=== PATIENT | female | born 1995 | race Caucasian/White ===

== ENCOUNTER 2017-01-30 13:34 | Emergency (ER) | payer MEDICAID, OTHER ==
[2017-01-30 14:01] VITALS: RESP 18; O2SAT 98; BMI 24.3
--- NOTE | 2017-01-30 15:05 | ED PDOC ---
Arrival/HPI - General Chief Complaint: Abdominal Pain Time Seen by Provider: 01/30/17 14:53 Historian: Patient - History of Present Illness Narrative History of Present Illness (Text): 01/30/17 15:00 Laly Feng is a 21 year old female, who presents to the emergency department complaining of intermittent lower abdominal cramp and pelvic pain for past 6 days. Does not have pain now. Reports that her last menstrual period was January 14 which was normal. Denies fever, chills, nausea, vomiting, diarrhea, vaginal discharge, vaginal bleeding, urinary symptoms, or any other complaints at this time. Time/Duration: < week (6 days ) Symptom Onset: Gradual Symptom Course: Intermittent Severity Level: Mild Activities at Onset: Light Context: Home Past Medical History - Provider Review Nursing Documentation Reviewed: Yes - Infectious Disease Hx of Infectious Diseases: None - Tetanus Immunization Tetanus Immunization: Unknown - Past Medical History Past Medical History: No Previous - Psychiatric Hx Psychophysiologic Disorder: No Hx Anxiety: No Hx Bipolar Disorder: No Hx Depression: No Hx Emotional Abuse: No Hx Hallucinations: No Hx Panic Disorder: No Hx Post Traumatic Stress Disorder: No Hx Psychosis: No Hx Physical Abuse: No Hx Schizophrenia: No Hx Sexual Abuse: No Hx Substance Use: No - Past Surgical History Past Surgical History: No Previous - Anesthesia Hx Anesthesia: No Hx Anesthesia Reactions: No Hx Malignant Hyperthermia: No - Suicidal Assessment Feels Threatened In Home Enviroment: No Family/Social History - Physician Review Nursing Documentation Reviewed: Yes Family/Social History: No Known Family HX Smoking Status: Never Smoked Hx Alcohol Use: No Hx Substance Use: No Hx Substance Use Treatment: No Allergies/Home Meds Allergies/Adverse Reactions: Allergies No Known Allergies Allergy (Verified 01/30/17 14:00) Review of Systems - Physician Review All systems were reviewed & negative as marked: Yes - Review of Systems Constitutional: Normal. absent: Fatigue, Fevers Respiratory: Normal. absent: SOB, Cough Cardiovascular: Normal. absent: Chest Pain Gastrointestinal: Abdominal Pain (lower abdominal pain ). absent: Diarrhea, Nausea, Vomiting Genitourinary Female: Normal. absent: Dysuria, Frequency, Vaginal Bleeding, Vaginal Discharge Musculoskeletal: Normal Neurological: Normal. absent: Headache, Dizziness Psychiatric: Normal Physical Exam Vital Signs Reviewed: Yes Vital Signs Temp Pulse Resp BP Pulse Ox 01/30/17 16:31 98.3 F 76 18 133/75 98 01/30/17 15:39 79 18 135/79 98 01/30/17 13:56 98.7 F 87 18 138/82 98 Temperature: Afebrile Blood Pressure: Normal Pulse: Regular Respiratory Rate: Normal Appearance: Positive for: Well-Appearing, Non-Toxic, Comfortable Pain Distress: None Mental Status: Positive for: Alert and Oriented X 3 - Systems Exam Head: Present: Atraumatic, Normocephalic Pupils: Present: PERRL Conjunctiva: Present: Normal Mouth: Present: Moist Mucous Membranes Respiratory/Chest: Present: Clear to Auscultation, Good Air Exchange. No: Respiratory Distress, Accessory Muscle Use Cardiovascular: Present: Regular Rate and Rhythm, Normal S1, S2. No: Murmurs Abdomen: No: Tenderness, Distention, Normal Bowel Sounds, Peritoneal Signs, Rebound, Guarding Upper Extremity: Present: Normal Inspection. No: Cyanosis, Edema Lower Extremity: Present: Normal Inspection. No: Edema Neurological: Present: GCS=15, CN II-XII Intact, Speech Normal Skin: Present: Warm, Dry, Normal Color. No: Rashes Psychiatric: Present: Alert, Oriented x 3, Normal Insight, Normal Concentration Medical Decision Making ED Course and Treatment: 01/30/17 15:07 Impression: A 21 year old female who presents to the emergency department complaining of intermittent abdominal pain Differential Diagnosis include but are not limited to: Abdominal pain: r/o UTI vs enteritis Plan: -- Labs -- Chalmydia GC -- Urine Culture -- HCG -- Urinalysis -- Reassess and disposition Progress Notes: 01/30/17 16:37 She states that she is a virgin and has not had an penetrating during sex. She was concern that she could have been but [facility] and that was explained to her. I also had this conversation in private and she still states she has not engaged in coitus. Patient still does not have any pain. Her abdomen is soft and not tender. Her labs and UA were reviewed and negative. I explained to her that cultures were sent and if positive we will call her. JAKE Cook explaining with me at bedside. 01/30/17 16:40 - Lab Interpretations Lab Results: 01/30/17 15:45 01/30/17 15:45 Lab Results 01/30/17 15:45: WBC 5.9, RBC 4.57, Hgb 12.7, Hct 37.3, MCV 81.6, MCH 27.8, MCHC 34.0, RDW 12.7, Plt Count 225, MPV 10.5, Gran % 43.2 L, Lymph % (Auto) 46.2 H, [place] % (Auto) 6.2 H, Eos % (Auto) 4.1, Baso % (Auto) 0.3, Gran # 2.53, Lymph # 2.7, [place] # 0.4, Eos # 0.2, Baso # 0.02, Sodium 138, Potassium 4.3, Chloride 101 , Carbon Dioxide 27, Anion Gap 14, BUN 16, Creatinine 0.7, Est GFR ( Amer ) > 60, Est GFR (Non-Af Amer) > 60, Random Glucose 88, Calcium 9.2, Total Bilirubin 0.7, AST 19, ALT 29, Alkaline Phosphatase 70, Total Protein 7.8, Albumin 4.2, Globulin 3.6, Albumin/Globulin Ratio 1.2 01/30/17 15:20: Urine Color Yellow, Urine Appearance Turbid, Urine pH 8.5, Ur Specific [place] 1.015, Urine Protein Negative, Urine Glucose (UA) Negative, Urine Ketones Negative, Urine Blood Negative, Urine Nitrate Negative, Urine Bilirubin Negative, Urine Urobilinogen 0.2, Ur Leukocyte Esterase Negative, Urine HCG, Qual Negative - Scribe Statement The provider has reviewed the documentation as recorded by the Mandi Khan Provider Attestation: All medical record entries made by the Mandi were at my direction and personally dictated by me. I have reviewed the chart and agree that the record accurately reflects my personal performance of the history, physical exam, medical decision making, and the department course for this patient. I have also personally directed, reviewed, and agree with the discharge instructions and disposition. Disposition/Present on Arrival - Present on Arrival Any Indicators Present on Arrival: No History of DVT/PE: No History of Uncontrolled Diabetes: No Urinary Catheter: No History of Decub. Ulcer: No History Surgical Site Infection Following: None - Disposition Have Diagnosis and Disposition been Completed?: Yes Diagnosis: Abdominal pain Disposition: HOME/ ROUTINE Disposition Time: 16:40 Patient Plan: Discharge Patient Problems: Current Active Problems Problem Status Diagnosed Abdominal pain Acute Condition: IMPROVED Discharge Instructions (ExitCare): Abdominal Pain (ED) Additional Instructions: Ms Feng, thank you for letting us take care of you today. Your provider was Dr. Garcia. You were treated for Abdominal Pain. The emergency medical care you received today was directed at your acute symptoms. If you were prescribed any medication, please fill it and take as directed. It may take several days for your symptoms to resolve. Return to the Emergency Department if your symptoms worsen, do not improve, or if you have any other problems. Please contact your doctor or call one of the physicians/clinics you have been referred to that are listed on the Patient Visit Information form that is included in your discharge packet. Bring any paperwork you were given at discharge with you along with any medications you are taking to your follow up visit. Our treatment cannot replace ongoing medical care by a primary care provider (PCP) outside of the emergency department. Thank you for allowing the [facility] team to be part of your care today. If you had an X-Ray or CT scan: A Radiologist will review the ED reading if any change in treatment is needed we will contact you. If you had a blood, urine, or wound culture: It will take several days for the results, if any change in treatment is needed we will contact you. If you had an STI test: It will take 48 hours for the results. Please call after 1 week if you have not heard back. Prescriptions: Ranitidine HCl [Zantac] 150 mg PO BID PRN #30 tablet PRN Reason: Pain, Mild (1-3) Referrals: [facility] at [facility] [Outside] - Follow up with primary Forms: WORK NOTE
[2017-01-30 15:44] LABS: PH,URINE 8.5 (4.7-8.0); URINE BILIRUBIN NEGATIVE (NEGATIVE); URINE BLOOD NEGATIVE (NEGATIVE); URINE GLUCOSE (UA) NEGATIVE (NEGATIVE); URINE KETONE NEGATIVE (NEGATIVE); URINE LEUKOCYTE ESTERASE NEGATIVE Leu/uL (NEGATIVE); URINE PROTEIN NEGATIVE mg/dL (<30 mg/dL); URINE UROBILINOGEN 0.2 E.U./dL (<1 E.U./dL)
[2017-01-30 15:45] LABS: URINE APPEARANCE TURBID (CLEAR); URINE COLOR YELLOW (YELLOW)
[2017-01-30 15:52] LABS: ADD MANUAL DIFF? NO
[2017-01-30 15:55] LABS: BASO # 0.02 K/mm3 (0.0-2.0); BASO % 0.3 % (0.0-3.0); EOS # 0.2 (0.0-0.7); EOS % 4.1 % (1.5-5.0); GRAN # 2.53 (1.4-6.5); GRAN % 43.2 % (50.0-68.0); HEMATOCRIT 37.3 % (36.0-48.0); LYMPH # 2.7 (1.2-3.4); LYMPH % 46.2 % (22.0-35.0); MEAN CELL VOLUME 81.6 fL (80.0-105.0); MEAN CORPUSCULAR HEMOGLOBIN 27.8 pg (25.0-35.0); MEAN PLATELET VOLUME 10.5 fl (7.0-11.0); MONO # 0.4 (0.1-0.6); MONO % 6.2 % (1.0-6.0); PLATELET COUNT 225 10^3/uL (120.0-450.0); RED CELL DISTRIBUTION WIDTH 12.7 % (11.5-14.5); WHITE BLOOD COUNT 5.9 10^3/ul (4.5-11.0)
[2017-01-30 16:03] LABS: ALB/GLOB RATIO 1.2 (1.1-1.8); ALKALINE PHOSPHATASE 70 U/L (38-133); ALT/SGPT 29 U/L (7-56); AST/SGOT 19 U/L (15-39); BILIRUBIN,TOTAL 0.7 mg/dL (0.2-1.3); BLOOD UREA NITROGEN 16 mg/dL (7-21); CALCIUM 9.2 mg/dL (8.4-10.5); CARBON DIOXIDE 27 mmol/L (21-33); CHLORIDE 101 mmol/L (98-107); GFR AFRICAN-AMERICAN > 60; GLUCOSE,RANDOM 88 mg/dL (70-110); POTASSIUM 4.3 mmol/L (3.6-5.0); SODIUM 138 mmol/L (132-148); TOTAL PROTEIN 7.8 g/dL (5.8-8.3)
[2017-01-30 16:32] VITALS: BP 133/75; PULSE 76; TEMP 98.3
== END 2017-01-30 16:35 | disposition home or self-care (01) ==
LOC: ED 13:34
DX: R10.30 Lower abdominal pain, unspecified (principal)

== ENCOUNTER 2017-05-31 15:10 | Emergency (ER) | payer MEDICAID ==
[2017-05-31 15:11] VITALS: BMI 24.3
[2017-05-31 15:28] VITALS: BP 126/93; PULSE 98; RESP 16; TEMP 99; O2SAT 99
--- NOTE | 2017-05-31 15:45 | ED PDOC ---
Arrival/HPI - General Chief Complaint: Lower Extremity Problem/Injury Time Seen by Provider: 05/31/17 15:41 Historian: Patient - History of Present Illness Narrative History of Present Illness (Text): 05/31/17 15:42 This 21 yo female presents to this ED c/o left lateral ankle pain x 5 days. Patient stated she had twisted her left ankle. Denies knee pain, back pain, or hip pain. Time/Duration: Prior to Arrival Quality: Aching Severity Level: 4 Context: Home Past Medical History - Provider Review Nursing Documentation Reviewed: Yes - Infectious Disease Hx of Infectious Diseases: None - Tetanus Immunization Tetanus Immunization: Unknown - Past Medical History Past Medical History: No Previous - Psychiatric Hx Psychophysiologic Disorder: No Hx Anxiety: No Hx Bipolar Disorder: No Hx Depression: No Hx Emotional Abuse: No Hx Hallucinations: No Hx Panic Disorder: No Hx Post Traumatic Stress Disorder: No Hx Psychosis: No Hx Physical Abuse: No Hx Schizophrenia: No Hx Sexual Abuse: No Hx Substance Use: No - Past Surgical History Past Surgical History: No Previous - Anesthesia Hx Anesthesia: No Hx Anesthesia Reactions: No Hx Malignant Hyperthermia: No - Suicidal Assessment Feels Threatened In Home Enviroment: No Family/Social History - Physician Review Nursing Documentation Reviewed: Yes Family/Social History: No Known Family HX Smoking Status: Never Smoked Hx Alcohol Use: No Hx Substance Use: No Hx Substance Use Treatment: No Allergies/Home Meds Allergies/Adverse Reactions: Allergies No Known Allergies Allergy (Verified 01/30/17 14:00) Review of Systems - Review of Systems Constitutional: Normal. absent: Fatigue, Weight Change, Fevers Eyes: Normal ENT: Normal Respiratory: Normal. absent: SOB, Cough, Sputum, Wheezing Cardiovascular: Normal Gastrointestinal: Normal. absent: Abdominal Pain, Nausea, Vomiting Genitourinary Female: Normal. absent: Dysuria, Hematuria Musculoskeletal: Other ((+) ankle pain) Skin: Normal Neurological: Normal Endocrine: Normal Hemo/Lymphatic: Normal Psychiatric: Normal Physical Exam Vital Signs Temp Pulse Resp BP Pulse Ox 05/31/17 15:27 99.0 F 98 H 16 126/93 H 99 Temperature: Afebrile Blood Pressure: Normal Pulse: Regular Respiratory Rate: Normal Appearance: Positive for: Well-Appearing, Non-Toxic, Comfortable Pain Distress: None Mental Status: Positive for: Alert and Oriented X 3 - Systems Exam Head: Present: Atraumatic, Normocephalic Pupils: Present: PERRL Extroacular Muscles: Present: EOMI Conjunctiva: Present: Normal Mouth: Present: Moist Mucous Membranes Neck: Present: Normal Range of Motion Respiratory/Chest: Present: Clear to Auscultation, Good Air Exchange. No: Respiratory Distress, Accessory Muscle Use Cardiovascular: Present: Regular Rate and Rhythm, Normal S1, S2. No: Murmurs Abdomen: Present: Normal Bowel Sounds. No: Tenderness, Distention, Peritoneal Signs Back: Present: Normal Inspection Upper Extremity: Present: Normal Inspection. No: Cyanosis, Edema Lower Extremity: Present: Normal Inspection, NORMAL PULSES, Normal ROM, Tenderness (mild left lateral malleoulus tenderness), Neurovascularly Intact, Capillary Refill < 2 s. No: Edema, CALF TENDERNESS, Cyanosis, Ryan's Sign, Swelling, Erythema, Deformity, Temperature Abnormalties Neurological: Present: GCS=15, CN II-XII Intact, Speech Normal, Motor Func Grossly Intact, Normal Sensory Function, Normal Cerebellar Funct, Gait Normal Skin: Present: Warm, Dry, Normal Color. No: Rashes Psychiatric: Present: Alert, Oriented x 3 Medical Decision Making ED Course and Treatment: 05/31/17 16:11 Patient denies Re-evaluation Time: 16:11 Reassessment Condition: Re-examined, Improved - RAD Interpretation Narrative RAD Interpretations (Text): 05/31/17 16:11 Ankle x-rays: No Fx Radiology Orders: 05/31/17 15:41 ANKLE LEFT 3 VIEWS ROUTINE [RAD] Stat Disposition/Present on Arrival - Present on Arrival Any Indicators Present on Arrival: No History of DVT/PE: No History of Uncontrolled Diabetes: No Urinary Catheter: No History of Decub. Ulcer: No History Surgical Site Infection Following: None - Disposition Have Diagnosis and Disposition been Completed?: Yes Diagnosis: Left ankle strain Disposition: HOME/ ROUTINE Disposition Time: 16:15 Patient Plan: Discharge Patient Problems: Current Active Problems Problem Status Onset Left ankle strain Acute Condition: GOOD Discharge Instructions (ExitCare): Ankle Sprain (ED) Additional Instructions: Call private doctor for follow up visit in 1-2 days. Take medication as instructed. Return to emergency if symptoms worsen. Prescriptions: Famotidine [Pepcid] 40 mg PO DAILY #10 tablet Ibuprofen [Motrin] 600 mg PO Q8 PRN #20 tab PRN Reason: Pain, Severe (8-10) Referrals: Tyrese Murillo MD [Primary Care Provider] - Follow up with primary Forms: [facility] (Indonesian)
--- NOTE | 2017-05-31 16:49 | RAD ---
PROCEDURE: Left Ankle Radiographs. HISTORY: pain COMPARISON: None available. FINDINGS: BONES: No acute displaced fracture. JOINTS: No dislocation. SOFT TISSUES: Unremarkable. No evidence of radiopaque foreign body. OTHER FINDINGS: None. IMPRESSION: No acute displaced fracture, dislocation, or significant joint effusion identified. If symptoms persist or if there is clinical concern, x-ray follow-up in 7-10 days should be considered.
== END 2017-05-31 16:21 | disposition home or self-care (01) ==
LOC: ED 15:10
DX: S86.912A Strain of unspecified muscle(s) and tendon(s) at lower leg level, left leg, initial encounter (principal); X50.1XXA Overexertion from prolonged static or awkward postures, initial encounter; Y92.009 Unspecified place in unspecified non-institutional (private) residence as the place of occurrence of the external cause

== ENCOUNTER 2017-08-12 20:41 | Emergency (ER) | payer MEDICAID ==
[2017-08-12 20:41] VITALS: BMI 24.3
--- NOTE | 2017-08-12 21:27 | ED PDOC ---
Arrival/HPI - General Historian: Patient - History of Present Illness Time/Duration: Other (2 weeks) Symptom Onset: Sudden Symptom Course: Intermittent Quality: Pressure, Stabbing Severity Level: 9 Activities at Onset: Light Context: Home <CYNTHIA GARCIA - Last Filed: 08/12/17 22:00> <Jose Alfredo Ibrahim - Last Filed: 08/14/17 22:55> - General Chief Complaint: Abnormal Skin Integrity Time Seen by Provider: 08/12/17 20:52 - History of Present Illness Narrative History of Present Illness (Text): 08/12/17 21:28 Ms. Feng is a 21 year old female with no significant past medical history presents to the [facility] emergency department with a chief complaint of painful bilateral axillary masses. Patient states that two weeks ago she noticed two painful bumps under her right arm. Since that time, one of these bumps has gone away on its own and the other has had minimal decrease in size. Three days ago, she noticed another painful mass under her left arm. She states that she wanted to get checked out at her PMD's office but she has had a difficult time scheduling this with her class load. She has never had these before. She denies any rash or drainage in either axillae. She denies any fever , chills, weight loss, headache, chest pain, shortness of breath, abdominal pain , N/V, diarrhea or any burning with urination. (CYNTHIA GARCIA) Past Medical History - Provider Review Nursing Documentation Reviewed: Yes - Travel History Have you recently traveled outside [place] w/in the past 3 mons?: No - Past History Past History: No Previous - Infectious Disease Hx of Infectious Diseases: None - Tetanus Immunization Tetanus Immunization: Unknown - Reproductive Menopause: No - Past Medical History Past Medical History: No Previous - Psychiatric Hx Psychophysiologic Disorder: No Hx Anxiety: No Hx Bipolar Disorder: No Hx Depression: No Hx Emotional Abuse: No Hx Hallucinations: No Hx Panic Disorder: No Hx Post Traumatic Stress Disorder: No Hx Psychosis: No Hx Physical Abuse: No Hx Schizophrenia: No Hx Sexual Abuse: No Hx Substance Use: No - Past Surgical History Past Surgical History: No Previous - Anesthesia Hx Anesthesia: No Hx Anesthesia Reactions: No Hx Malignant Hyperthermia: No - Suicidal Assessment Feels Threatened In Home Enviroment: No <CYNTHIA GARCIA - Last Filed: 08/12/17 22:00> Family/Social History - Physician Review Nursing Documentation Reviewed: Yes Family/Social History: No Known Family HX Smoking Status: Never Smoked Hx Alcohol Use: No Hx Substance Use: No Hx Substance Use Treatment: No <CYNTHIA GARCIA - Last Filed: 08/12/17 22:00> Allergies/Home Meds <CYNTHIA GARCIA - Last Filed: 08/12/17 22:00> <Jose Alfredo Ibrahim - Last Filed: 08/14/17 22:55> Allergies/Adverse Reactions: Allergies No Known Allergies Allergy (Verified 01/30/17 14:00) Review of Systems - Physician Review All systems were reviewed & negative as marked: Yes - Review of Systems Constitutional: Normal. absent: Weight Change, Fevers, Night Sweats Eyes: Normal ENT: Normal Respiratory: Normal. absent: SOB Cardiovascular: Normal. absent: Chest Pain Gastrointestinal: Normal. absent: Abdominal Pain, Diarrhea, Nausea, Vomiting Genitourinary Female: Normal. absent: Dysuria Musculoskeletal: Normal Skin: Other (painful bumps in bilateral axillae). absent: Normal, Rash Neurological: Normal. absent: Headache Endocrine: Normal Hemo/Lymphatic: Normal Psychiatric: Normal <CYNTHIA GARCIA - Last Filed: 08/12/17 22:00> Physical Exam Vital Signs Reviewed: Yes Temperature: Afebrile Blood Pressure: Normal Pulse: Regular Respiratory Rate: Normal Appearance: Positive for: Well-Appearing, Non-Toxic, Comfortable Pain Distress: None Mental Status: Positive for: Alert and Oriented X 3 - Systems Exam Head: Present: Atraumatic, Normocephalic Pupils: Present: PERRL Extroacular Muscles: Present: EOMI Conjunctiva: Present: Normal Mouth: Present: Moist Mucous Membranes Pharnyx: Present: Normal Neck: Present: Normal Range of Motion, Trachea Midline. No: Meningeal Signs, MIDLINE TENDERNESS, Paraspinal Tenderness, JVD, Lymphadenopathy Respiratory/Chest: Present: Clear to Auscultation, Good Air Exchange. No: Respiratory Distress, Accessory Muscle Use, Wheezes, Decreased Breath Sounds, Rales, Retracting, Rhonchi, Tachypneic, Tender to Palpation Cardiovascular: Present: Regular Rate and Rhythm, Normal S1, S2, Peripheal Pulses Present. No: Murmurs, Irregular Rhythm, Tachycardic, Bradycardic, Rub, Gallop, Muffled Abdomen: Present: Normal Bowel Sounds. No: Tenderness, Distention, Peritoneal Signs Back: Present: Normal Inspection. No: CVA Tenderness, Midline Tenderness, Paraspinal Tenderness Upper Extremity: Present: Normal ROM, NORMAL PULSES, Tenderness (bilateral axillae), Other (approximately 1cm tender nodule in R axillae and approximately 0.5cm tender nodule in L axillae with no overlying erythema or open wound). No : Normal Inspection, Cyanosis, Edema Lower Extremity: Present: Normal Inspection, NORMAL PULSES, Normal ROM, Capillary Refill < 2 s. No: Edema, CALF TENDERNESS Neurological: Present: GCS=15, CN II-XII Intact, Speech Normal Skin: Present: Warm, Dry, Normal Color. No: Rashes Lymphatic: No: Cervical Adenopathy Psychiatric: Present: Alert, Oriented x 3, Normal Insight, Normal Concentration <CYNTHIA GARCIA - Last Filed: 08/12/17 22:00> Vital Signs Temp Pulse Resp BP Pulse Ox 08/12/17 22:14 70 18 127/84 100 08/12/17 20:41 98.9 F 75 18 130/91 H 99 Medical Decision Making <CYNTHIA GARCIA - Last Filed: 08/12/17 22:00> <Jose Alfredo Ibrahim - Last Filed: 08/14/17 22:55> ED Course and Treatment: 08/12/17 21:46 Impression: 21 year old female with no significant past medical history presents to the [facility] emergency department with a chief complaint of painful bilateral axillary masses. Plan: -PO antibiotics -Reassess and disposition Prior Visits: All reports and results from previous visits were reviewed. Patient was seen and evaluated in 04/13 for abdominal pain and in 02/11 for breast pain (CYNTHIA GARCIA) Impression: Pt seen and evaluated with medical assistant instructor. Pt, with no significan past medical history, presented for bilateral axillary masses with associated pain to the area. Aware and agree with HPI, clinical findings, plan, and management. Plan: -- Bactrim -- Cephalexin -- Reassess and disposition (Jose Alfredo Ibrahim) - PA / DRAFTING LAYOUT WORKER / Resident Statement / has reviewed & agrees with the documentation as recorded. / has examined the patient and agrees with the treatment plan. <Jose Alfredo Ibrahim - Last Filed: 08/14/17 22:55> Disposition/Present on Arrival - Present on Arrival Any Indicators Present on Arrival: No History of DVT/PE: No History of Uncontrolled Diabetes: No Urinary Catheter: No History of Decub. Ulcer: No History Surgical Site Infection Following: None - Disposition Have Diagnosis and Disposition been Completed?: Yes Disposition Time: 21:57 <CYNTHIA GARCIA - Last Filed: 08/12/17 22:00> <Jose Alfredo Ibrahim - Last Filed: 08/14/17 22:55> - Disposition Diagnosis: Hydradenitis Disposition: HOME/ ROUTINE Condition: GOOD Discharge Instructions (ExitCare): Adenitis (ED) Additional Instructions: Ms. Feng, thank you for letting us take care of you today. Your provider was Dr. Ibrahim. You were treated for hydradenitis. The emergency medical care you received today was directed at your acute symptoms. If you were prescribed any medication, please fill it and take as directed. It may take several days for your symptoms to resolve. Return to the Emergency Department if your symptoms worsen, do not improve, or if you have any other problems. Please contact your doctor or call one of the physicians/clinics you have been referred to that are listed on the Patient Visit Information form that is included in your discharge packet. Bring any paperwork you were given at discharge with you along with any medications you are taking to your follow up visit. Our treatment cannot replace ongoing medical care by a primary care provider (PCP) outside of the emergency department. PLEASE TAKE ALL MEDICATIONS PRESCRIBED AND FOLLOW UP WITH YOUR PRIMARY CARE DOCTOR WITHIN ONE TO TWO WEEKS Thank you for allowing the [facility] team to be part of your care today. Prescriptions: Cephalexin [cephalexin] 500 mg PO BID #14 cap Sulfamethoxazole/Trimethoprim [Bactrim DS 800 mg-160 mg] 1 tab PO BID #14 tab Referrals: Tyrese Murillo MD [Primary Care Provider] - Follow up with primary Forms: [employer] ([place])
[2017-08-12 22:14] VITALS: BP 127/84; PULSE 70; RESP 18; TEMP 98.9; O2SAT 100
== END 2017-08-12 22:18 | disposition home or self-care (01) ==
LOC: ED 20:41
DX: L73.2 Hidradenitis suppurativa (principal)

== ENCOUNTER 2017-10-07 10:49 | Emergency (ER) | payer MEDICAID ==
[2017-10-07 10:50] VITALS: BMI 24.3
--- NOTE | 2017-10-07 11:00 | ED PDOC ---
Arrival/HPI - General Time Seen by Provider: 10/07/17 11:00 Historian: Patient - History of Present Illness Narrative History of Present Illness (Text): 10/07/17 11:00 21 y/o female, pmh including hydradenitits, nkda, c/o itching rash on the body x 1 week with no change in soap/clothing/detergent. Itching rash, no pain, no fever or chills, no bodyache or join pain, no numbness or tingling, no abdominal or pelvic pain, no night sweat, no rash, no other medical or psychological complaints. Past Medical History - Provider Review Nursing Documentation Reviewed: Yes - Past History Past History: No Previous - Infectious Disease Hx of Infectious Diseases: None - Tetanus Immunization Tetanus Immunization: Unknown - Reproductive Currently : No - Past Medical History Past Medical History: No Previous - Psychiatric Hx Psychophysiologic Disorder: No Hx Anxiety: No Hx Bipolar Disorder: No Hx Depression: No Hx Emotional Abuse: No Hx Hallucinations: No Hx Panic Disorder: No Hx Post Traumatic Stress Disorder: No Hx Psychosis: No Hx Physical Abuse: No Hx Schizophrenia: No Hx Sexual Abuse: No Hx Substance Use: No - Past Surgical History Past Surgical History: No Previous - Anesthesia Hx Anesthesia: No Hx Anesthesia Reactions: No Hx Malignant Hyperthermia: No - Suicidal Assessment Feels Threatened In Home Enviroment: No Family/Social History - Physician Review Nursing Documentation Reviewed: Yes Family/Social History: Unknown Family HX Smoking Status: Never Smoked Hx Alcohol Use: No Hx Substance Use: No Hx Substance Use Treatment: No Allergies/Home Meds Allergies/Adverse Reactions: Allergies No Known Allergies Allergy (Verified 01/30/17 14:00) Review of Systems - Review of Systems Constitutional: absent: Fatigue, Fevers Eyes: absent: Vision Changes ENT: absent: Hearing Changes Respiratory: absent: SOB, Cough Cardiovascular: absent: Chest Pain Gastrointestinal: absent: Abdominal Pain, Diarrhea, Nausea, Vomiting Skin: Rash, Pruritis. absent: Skin Lesions, Laceration, Abscess, Ulcer, Cellulitis Neurological: absent: Headache, Dizziness Psychiatric: absent: Anxiety, Depression Physical Exam Vital Signs Reviewed: Yes Vital Signs Temp Pulse Resp BP Pulse Ox 10/07/17 11:03 97.9 F 88 18 127/79 99 Temperature: Afebrile Blood Pressure: Normal Pulse: Regular Respiratory Rate: Normal Appearance: Positive for: Well-Appearing, Non-Toxic, Comfortable Pain Distress: None Mental Status: Positive for: Alert and Oriented X 3 - Systems Exam Head: Present: Atraumatic, Normocephalic Pupils: Present: PERRL Extroacular Muscles: Present: EOMI Conjunctiva: Present: Normal Mouth: Present: Moist Mucous Membranes Neck: Present: Normal Range of Motion Respiratory/Chest: Present: Clear to Auscultation, Good Air Exchange. No: Respiratory Distress, Accessory Muscle Use Cardiovascular: Present: Regular Rate and Rhythm, Normal S1, S2. No: Murmurs Abdomen: Present: Normal Bowel Sounds. No: Tenderness, Distention, Peritoneal Signs Back: Present: Normal Inspection Upper Extremity: Present: Normal Inspection. No: Cyanosis, Edema Lower Extremity: Present: Normal Inspection. No: Edema Neurological: Present: GCS=15, Speech Normal, Motor Func Grossly Intact, Gait Normal, Memory Normal Skin: Present: Warm, Dry, Rashes (visible macule rash approx. 1.5cm diameter with papule border appear to be tinea with lichenification noted, no bullseye or target signs, no cellulitis or streaking, no ulcers. ), Normal Color Psychiatric: Present: Alert, Oriented x 3, Normal Insight, Normal Concentration Medical Decision Making ED Course and Treatment: 10/07/17 11:17 -Urine hcg negative. -Discharge home with zyrtec, medrodose urszula, lotrison, stay hydrated, bed rest, follow up with your own pmd and radar engineer within 2 days, return to the ER for any new or worsening signs or symptoms. - PA / [employer] / Resident Statement MD/DO has reviewed & agrees with the documentation as recorded. Disposition/Present on Arrival - Present on Arrival Any Indicators Present on Arrival: No History of DVT/PE: No History of Uncontrolled Diabetes: No Urinary Catheter: No History of Decub. Ulcer: No History Surgical Site Infection Following: None - Disposition Have Diagnosis and Disposition been Completed?: Yes Diagnosis: Dermatitis Disposition: HOME/ ROUTINE Disposition Time: 11:18 Patient Plan: Discharge Patient Problems: Current Active Problems Problem Status Onset Dermatitis Acute Condition: GOOD Additional Instructions: -Discharge home with zyrtec, medrodose urszula, lotrison, stay hydrated, bed rest, follow up with your own pmd and radar engineer within 2 days, return to the ER for any new or worsening signs or symptoms. Prescriptions: Cetirizine HCl [Zyrtec Allergy] 10 mg PO DAILY #14 sgl Clotrimazole/Betamethasone [Lotrisone] 1 appful EXT BID #60 g Methylprednisolone [Medrol Dose Pack (21 tabs)] 4 mg PO DAILY #21 mg
[2017-10-07 11:15] VITALS: TEMP 97.9; O2SAT 99
[2017-10-07 12:12] VITALS: BP 120/70; PULSE 70; RESP 16
== END 2017-10-07 12:00 | disposition home or self-care (01) ==
LOC: ED 10:49
DX: L30.9 Dermatitis, unspecified (principal)

== ENCOUNTER 2018-09-11 08:02 | Emergency (ER) | payer MEDICAID ==
[2018-09-11 08:03] VITALS: BMI 24.3
[2018-09-11 08:15] VITALS: RESP 16; TEMP 98
--- NOTE | 2018-09-11 08:31 | ED PDOC ---
Arrival/HPI - General Chief Complaint: Trauma Time Seen by Provider: 09/11/18 08:04 Historian: Patient - History of Present Illness Narrative History of Present Illness (Text): 09/11/18 08:26 22 year old female, with no significant past medical history, presents to the emergency department complaining of bilateral knee pain s/p fall last week. Patient states she was at school when she fell landing on both knees. She noted swelling throughout the week which has improved. Patient is able to walk without any difficulty. She denies taking anything medication for the pain. Patient denies any fever, chills, back pain, neck pain, headache, dizziness, or any other complaints. PMD: Dr. Murillo Past Medical History - Provider Review Nursing Documentation Reviewed: Yes - Past History Past History: No Previous - Infectious Disease Hx of Infectious Diseases: None - Tetanus Immunization Tetanus Immunization: Unknown - Past Medical History Past Medical History: No Previous - Psychiatric Hx Substance Use: No - Past Surgical History Past Surgical History: No Previous - Anesthesia Hx Anesthesia: No Hx Anesthesia Reactions: No Hx Malignant Hyperthermia: No - Suicidal Assessment Feels Threatened In Home Enviroment: No Family/Social History - Physician Review Nursing Documentation Reviewed: Yes Family/Social History: No Known Family HX Smoking Status: Never Smoked Hx Alcohol Use: No Hx Substance Use: No Hx Substance Use Treatment: No Allergies/Home Meds Allergies/Adverse Reactions: Allergies No Known Allergies Allergy (Verified 01/30/17 14:00) Home Medications: Home Meds Medication Instructions Recorded Confirmed No Known Home Med 09/11/18 09/11/18 Review of Systems - Physician Review All systems were reviewed & negative as marked: Yes - Review of Systems Constitutional: absent: Fevers Musculoskeletal: absent: Back Pain Physical Exam - Physical Exam Narrative Physical Exam (Text): Constitutional: No acute distress. Head: Normocephalic. Atraumatic. Eyes: PERRL. ENT: Moist mucous membranes. Neck: Supple. Cardiovascular: Regular rate. Chest: No tenderness. Respiratory: Clear to auscultation bilaterally. GI: Soft. Nontender. Nondistended. Back: No CVA tenderness. Musculoskeletal: Ecchymosis to the anterior proximal left tibia. No deformity. No edema. No tenderness or swelling of extremities. Skin: No rash. Neurologic: Alert, no focal deficit. Vital Signs Reviewed: Yes Vital Signs Temp Pulse Resp BP Pulse Ox 09/11/18 08:14 98.0 F 84 16 114/76 97 Medical Decision Making ED Course and Treatment: 09/11/18 08:26 Impression: 22 year old female presents complaining of bilateral knee pain s/p fall last week. Plan: -- Knee w/ Patella bilat 3V X-ray -- Reassess and disposition Progress Notes: 09/11/18 09:43 XR no fracture or dislocation as read by me. ZAHIDA wraps applied. Discharged home, follow up pmd, return to emergency department for worsening pain or weakness. - Scribe Statement The provider has reviewed the documentation as recorded by the Mandi Piper Provider Scribe Attestation: All medical record entries made by the Denniseibamrina were at my direction and personal ly dictated by me. I have reviewed the chart and agree that the record accurately reflects my personal performance of the history, physical exam, medical decision making, and the department course for this patient. I have also personally directed, reviewed, and agree with the discharge instructions and disposition. Disposition/Present on Arrival - Present on Arrival Any Indicators Present on Arrival: No History of DVT/PE: No History of Uncontrolled Diabetes: No Urinary Catheter: No History of Decub. Ulcer: No History Surgical Site Infection Following: None - Disposition Have Diagnosis and Disposition been Completed?: Yes Diagnosis: Knee pain, bilateral Disposition: HOME/ ROUTINE Disposition Time: 09:43 Patient Plan: Discharge Condition: STABLE Discharge Instructions (ExitCare): Contusion (DC) Forms: [employer] ([place]ian)
[2018-09-11 09:54] VITALS: BP 101/66; PULSE 89; O2SAT 99
--- NOTE | 2018-09-11 10:40 | RAD ---
Date of service: 09/11/2018 PROCEDURE: Bilateral Knee Radiographs. HISTORY: knee pain, fall onto knees COMPARISON: None. FINDINGS: BONES: Right Knee: Normal. No fracture. Left Knee: Normal. No fracture. JOINTS: Right Knee: Normal. No osteoarthritis. Left knee: Normal. No osteoarthritis. SOFT TISSUES: Right Knee: Normal. Left Knee: Normal. JOINT EFFUSION: Right Knee: None. Left Knee: None. OTHER FINDINGS: None. IMPRESSION: Normal radiographs of the knees.
== END 2018-09-11 09:54 | disposition home or self-care (01) ==
LOC: ED 08:02
DX: M25.561 Pain in right knee (principal); M25.562 Pain in left knee